=== PATIENT | female | born 1930 | race Caucasian/White ===

== ENCOUNTER 2017-04-19 20:41 | Emergency (ER) | payer MEDICARE ==
[~2017-04-19] VITALS: Ht 162.5 cm; Wt 113.4 kg
[~2017-04-19 20:41] MED LIST: ATIVAN1 MG PO
[2017-04-19 21:26] LABS: BILIRUBIN NEGATIVE (NEGATIVE); BLOOD 1+ (NEGATIVE); CLARITY SL CLOUDY (CLEAR); COLOR YELLOW (YELLOW); GLUCOSE 1+ (NEGATIVE); KETONE 1+ (NEGATIVE); LEUKO ESTERASE 1+ (NEGATIVE); NITRITE NEGATIVE (NEGATIVE); PH 7.5 (5.0-9.0); UROBILINOGEN 0.2 E.U./dl (0.2-1.0)
[2017-04-19 21:31] LABS: BASO # 0.1 10*3/uL (0.0-0.1); BASO % 0.6 % (0.0-1.0); EOS # 0.3 10*3/uL (0.0-0.4); EOS % 1.9 % (1.0-4.0); HEMATOCRIT 49.4 % (37.0-47.0); HEMOGLOBIN 16.2 g/dl (12.0-16.0); LYMPH # 1.5 10*3/uL (1.3-4.4); LYMPH % 9.2 % (27.0-41.0); MEAN CELL VOLUME 97.4 fl (81.0-99.0); MEAN CORPUSCULAR HGB CONC 32.8 g/dl (33.0-37.0); MONO # 0.6 10*3/uL (0.1-1.0); MONO % 3.5 % (3.0-9.0); NEUT # 13.5 10*3/uL (2.3-7.9); NEUT % 84.1 % (47.0-73.0); PLATELET COUNT AUTOMATED 170 10*3/uL (130-400); RED BLOOD COUNT 5.07 10*6/uL (4.10-5.10); RED CELL DISTRI WIDTH 15.8 % (0-14.5)
[2017-04-19 21:41] LABS: ACT PARTIAL THROMBO TIME 31.6 SECONDS (20.8-31.5); INTERNATIONAL NORM RATIO 2.4 (2.0-3.5)
[2017-04-19 21:47] LABS: ALBUMIN 3.9 gm/dl (3.1-4.5); ALKALINE PHOSPHATASE 106 U/L (45-117); BUN 17 mg/dl (7-24); CHLORIDE 102 mmol/L (98-107); CPK 19 U/L (26-192); CREATININE 0.79 mg/dL (0.55-1.02); POTASSIUM 3.6 mmol/L (3.5-5.1); SGOT/AST 7 IU/L (3-35); SGPT/ALT 15 U/L (12-78); SODIUM 139 mmol/L (136-145); TOTAL PROTEIN 6.8 gm/dL (6.4-8.2)
[2017-04-19 21:48] LABS: CKMB 0.9 ng/ml (0.5-3.6)
[2017-04-19 21:57] LABS: TROPONIN I < 0.015 ng/ml (<0.045)
[2017-04-19 22:06] LABS: BACTERIA 2+; EPITHELIAL CELLS 0-2
== END 2017-04-19 22:49 | disposition short-term general hospital (02) ==
LOC: ED 20:41
PROVIDERS: Emergency Medicine Emergency Medical Services
DX: I61.9 Nontraumatic intracerebral hemorrhage, unspecified (principal); I10 Essential (primary) hypertension; E78.00 Pure hypercholesterolemia, unspecified; J44.9 Chronic obstructive pulmonary disease, unspecified; E11.9 Type 2 diabetes mellitus without complications; Z98.890 Other specified postprocedural states; Z79.01 Long term (current) use of anticoagulants